=== PATIENT | female | born 1970 | race African-American/Black ===

== ENCOUNTER 2017-04-08 12:49 | Emergency (ER) | payer MEDICAID ==
[~2017-04-08] VITALS: Ht 162.6 cm; Wt 62.4 kg
[2017-04-08 12:51] VITALS: BP 102/69
[2017-04-08] MEDS ORDERED: HYDROcodone/APAP 5/325 TABLET ONE (13:21)
[2017-04-08] MEDS ORDERED: HYDROcodone/APAP 5/325 TABLET PO ONE (13:30)
== END 2017-04-08 13:49 | disposition home or self-care (01) ==
LOC: ED 13:22
DX: K08.89 Other specified disorders of teeth and supporting structures (principal)
CPT/HCPCS: 99283

== ENCOUNTER 2018-11-28 12:39 | Emergency (ER) | payer MEDICAID ==
[~2018-11-28] VITALS: Ht 162.6 cm; Wt 72.1 kg
[2018-11-28 12:46] VITALS: BP 137/88
--- NOTE | 2018-11-28 14:34 | NUR ---
RN TRANSPLANT: RECEIVED CALL FROM PT, "I HAD TO LEAVE AND I JUST WANTED TO MAKE SURE THAT I WAS TAKEN OUT OF THE COMPUTER" PT LEFT AFTER BEING SEEN BY PROVIDER IN TRIAGE.
== END 2018-11-28 14:37 | disposition left against medical advice (07) ==
LOC: ED 14:31
DX: R05 Cough (principal)
CPT/HCPCS: 71046; 99283